=== PATIENT | male | born 1990 | race Caucasian/White ===

== ENCOUNTER 2020-03-14 09:42 | Emergency (ER) | payer SELFPAY ==
[2020-03-14] MEDS ORDERED: NA CHLORIDE 0.9% 1,000 ML ONE (10:21)
[2020-03-14 10:42] LABS: Albumin 4.1 g/dL (3.4-5.0); Bilirubin Direct 0.2 mg/dL (0-0.2); Bilirubin Total 0.5 mg/dL (0.2-1.0); Potassium 3.3 mmol/L (3.5-5.1); Protein, Total 7.5 g/dL (6.4-8.2)
[2020-03-14 10:43] LABS: Absolute Lymphocytes (CBC) 2.5 K/uL (0.7-4.9); Basophils % 0.4 % (0-1.3); Hematocrit 48.1 % (39.6-49.0); Lymphocytes % 23.1 % (15.3-44.8); MPV 8.5 fL (7.6-11.3); RBC Red Blood Cell Count 5.28 M/uL (4.33-5.43)
--- NOTE | 2020-03-14 11:02 | RAD REPORT ---
EXAM DESCRIPTION: CT - Stone Protocol - 03/14/2020 10:30 am CLINICAL HISTORY: Flank pain. Left falnk pain COMPARISON: No comparisons TECHNIQUE: Axial images were obtained without oral or IV contrast. Lack of contrast limits solid org an and vascular assessment. The [id number] spans the entirety of the system partially obscuring uppermost abdomen and lung bases. Coronal reformatted images were obtained and reviewed. All CT scans are performed using dose optimization technique as appropriate and may include automated exposure control or mA/KV adjustment according to patient size. FINDINGS: The lower lung gregory are clear. Imaged portions of the liver and spleen show no suspicious findings on non-contrast imaging. The panc reas and adrenal glands are normal. No pathologic lymphadenopathy in the abdomen or pelvis. 4 mm stone (850 HU) is present mid left ureter with mild left hydronephrosis. 6 mm stone is present i nferior calyx left kidney. No bowel obstruction, free air, free fluid or abscess. Normal appendix noted. No significant bony abnormality. IMPRESSION: 4 mm stone mid left ureter with mild left hydronephrosis. Additional 6 mm stone inferior calyx left kidney.
[2020-03-14 11:27] LABS: Urine Blood 2+ (NEG); Urine Glucose NEGATIVE (NEG); Urine Protein NEGATIVE (NEG)
--- NOTE | 2020-03-14 12:18 | EDPHYS ---
Physician Documentation [facility] Name: Miguel Martell Age: 30 yrs Sex: Male : 1990 Arrival Date: 03/14/2020 Time: 09:45 Bed 17 Private MD: ED Physician Alcides Langston HPI: 03/14 10:09 This 30 yrs old Male presents to ER via Ambulatory with complaints of kdr Possible Kidney Stone. 10:09 Left flank/CVA pain. Onset: The symptoms/episode began/occurred acutely, gradually, 3 kdr day(s) ago. Severity of symptoms: At their worst the symptoms were moderate severe in the emergency department the symptoms have improved moderately. The patient has not experienced similar symptoms in the past. The patient has not recently seen a physician. The patient's brother has had numerous kidney stones. Historical: - Allergies: 10:06 No Known Allergies; ph - Home Meds: 10:06 None [Active]; ph - PMHx: 10:06 None; ph - PSHx: 10:06 None; ph - Immunization history:: Adult Immunizations unknown. - Social history:: Smoking status: Patient denies any tobacco usage or history of. ROS: 10:09 Constitutional: Negative for fever, chills, and weight loss, Eyes: Negative for injury, kdr pain, redness, and discharge, ENT: Negative for injury, pain, and discharge, Neck: Negative for injury, pain, and swelling, Cardiovascular: Negative for chest pain, palpitations, and edema, Respiratory: Negative for shortness of breath, cough, wheezing, and pleuritic chest pain, Abdomen/GI: Negative for abdominal pain, nausea, vomiting, diarrhea, and constipation, : Negative for injury, bleeding, discharge, and swelling, MS/Extremity: Negative for injury and deformity, Skin: Negative for injury, rash, and discoloration, Neuro: Negative for headache, weakness, numbness, tingling, and seizure activity. Psych: Negative for depression, anxiety, suicide ideation, homicidal ideation, and hallucinations, Allergy/Immunology: Negative for hives, rash, and allergies, Endocrine: Negative for neck swelling, polydipsia, polyuria, polyphagia, and marked weight changes, Hematologic/Lymphatic: Negative for swollen nodes, abnormal bleeding, and unusual bruising. 10:09 Back: Positive for pain at rest, flank pain, on the left, of the left mid back. Exam: 10:09 Constitutional: This is a well developed, well nourished patient who is awake, alert, kdr and in no acute distress. Head/Face: Normocephalic, atraumatic. Eyes: Pupils equal round and reactive to light, extra-ocular motions intact. Lids and lashes normal. Conjunctiva and sclera are non-icteric and not injected. Cornea within normal limits. Periorbital areas with no swelling, redness, or edema. Neck: Trachea midline, no thyromegaly or masses palpated, and no cervical lymphadenopathy. Supple, full range of motion without nuchal rigidity, or vertebral point tenderness. No Meningismus. Chest/axilla: Normal chest wall appearance and motion. Nontender with no deformity. No lesions are appreciated. Cardiovascular: Regular rate and rhythm with a normal S1 and S2. No gallops, murmurs, or rubs. Normal PMI, no JVD. No pulse deficits. Respiratory: Lungs have equal breath sounds bilaterally, clear to auscultation and percussion. No rales, rhonchi or wheezes noted. No increased work of breathing, no retractions or nasal flaring. Abdomen/GI: Soft, non-tender, with normal bowel sounds. No distension or tympany. No guarding or rebound. No evidence of tenderness throughout. Skin: Warm, dry with normal turgor. Normal color with no rashes, no lesions, and no evidence of cellulitis. MS/ Extremity: Pulses equal, no cyanosis. Neurovascular intact. Full, normal range of motion. Neuro: Awake and alert, GCS 15, oriented to person, place, time, and situation. Cranial nerves II-XII grossly intact. Motor strength 5/5 in all extremities. Sensory grossly intact. Cerebellar exam normal. Normal gait. Psych: Awake, alert, with orientation to person, place and time. Behavior, mood, and affect are within normal limits. 10:09 Back: pain, that is mild, ROM is normal, normal spinal alignment noted, CVA tenderness, that is mild, is noted on the left. Vital Signs: 10:04 BP 118 / 84; Pulse 70; Resp 18; Temp 98.7; Pulse Ox 98% on R/A; Weight 72.57 kg; Height ph 5 ft. 8 in. (172.72 cm); Pain /; 11:31 BP 116 / 64; Pulse 75; Resp 15 S; Pulse Ox 100% on R/A; ca1 12:30 BP 122 / 77; Pulse 81; Resp 15 S; Pulse Ox 100% on R/A; ca1 10:04 Body Mass Index 24.33 (72.57 kg, 172.72 cm) ph MDM: 12:17 Patient medically screened. kdr 12:20 Data reviewed: vital signs, nurses notes, lab test result(s), radiologic studies. kdr Counseling: I had a detailed discussion with the patient and/or guardian regarding: the historical points, exam findings, and any diagnostic results supporting the discharge/admit diagnosis, lab results, radiology results, the need for outpatient follow up. ED course: The patient had little or no pain in the ED.. 03/14 10:08 Order name: Basic Metabolic Panel kdr 03/14 10:08 Order name: CBC with Diff; Complete Time: 12:00 kdr 03/14 10:08 Order name: Hepatic Function; Complete Time: 12:00 kdr 03/14 10:08 Order name: CT Stone Protocol; Complete Time: 12:00 kdr 03/14 10:08 Order name: Basic Metabolic Panel; Complete Time: 12:00 EDMS 03/14 10:36 Order name: Urine Dipstick--Ancillary (enter results); Complete Time: 12:00 em1 03/14 10:08 Order name: IV Saline Lock; Complete Time: 10:24 kdr 03/14 10:08 Order name: Labs collected and sent; Complete Time: 10:24 kdr Administered Medications: 10:20 Drug: NS 0.9% 1000 ml Route: IV; Rate: 1 bolus; Site: right antecubital; ca1 11:30 Follow up: Response: No adverse reaction; IV Status: Completed infusion ca1 Disposition: 03/14/20 12:17 Discharged to Home. Impression: Unspecified renal colic, Kidney Stones. - Condition is Stable. - Discharge Instructions: Renal Colic, [id number], Kidney Stones, [id number]. - Prescriptions for Tylenol- Codeine #3 300-30 mg Oral Tablet - take 2 tablets by ORAL route every 6 hours As needed; 15 tablet. Zofran 4 mg Oral Tablet - take 1 tablet by ORAL route every 4-6 hours As needed; 12 tablet. Flomax 0.4 mg Oral Capsule, Sust. Release 24 hr - take 1 capsule by ORAL route once daily 1/2 hour following the same meal each day; 10 capsule. Bactrim DS 800- 160 mg Oral Tablet - take 1 tablet by ORAL route every 12 hours for 3 days; 6 tablet. - Medication Reconciliation Form, Thank You Letter, Antibiotic Education, Prescription Opioid Use form. - Follow up: Private Physician; When: 2 - 3 days; Reason: If symptoms return, Further diagnostic work-up, Recheck today's complaints, Continuance of care, Re-evaluation by your physician. - Problem is new. - Symptoms have improved. Signatures: Dispatcher [employer] EDMS Alcides Langston MD MD kdr Hilda Guevara RN RN ph Romana Dawkins RN RN ca1 Corrections: (The following items were deleted from the chart) 12:35 12:17 03/14/2020 12:17 Discharged to Home. Impression: Unspecified renal colic; Kidney ca1 Stones. Condition is Stable. Forms are Medication Reconciliation Form, Thank You Letter, Antibiotic Education, Prescription Opioid Use. Follow up: Private Physician; When: 2 - 3 days; Reason: If symptoms return, Further diagnostic work-up, Recheck today's complaints, Continuance of care, Re-evaluation by your physician. Problem is new. Symptoms have improved. kdr
--- NOTE | 2020-03-14 12:18 | ER ---
Nurse's Notes [facility] Name: Miguel Martell Age: 30 yrs Sex: Male : 1990 Arrival Date: 03/14/2020 Time: 09:45 Bed 17 Private MD: Diagnosis: Unspecified renal colic;Kidney Stones Presentation: 03/14 10:04 Chief complaint: Patient states: Left lower back pain radiating to L flank and LLQ x 3 ph days, also reports 1 episode of N/V, denies fever or difficulty urinating. Coronavirus screen: Patient denies a cough. Patient denies shortness of breath or difficulty breathing. Patient denies measured and/or subjective temperature greater than 100.4F prior to today's visit. Patient denies travel on a cruise ship or to a country the [facility] currently lists as an affected area. Patient denies contact with known and/or suspected case of COVID-19. Ebola Screen: No symptoms or risks identified at this time. Initial Sepsis Screen: Does the patient meet any 2 criteria? No. Patient's initial sepsis screen is negative. Does the patient have a suspected source of infection? No. Patient's initial sepsis screen is negative. Risk Assessment: Do you want to hurt yourself or someone else? Patient reports no desire to harm self or others. Onset of symptoms was March 14, 2020. 10:04 Method Of Arrival: Ambulatory ph 10:04 Acuity: TANESHA 3 ph Historical: - Allergies: 10:06 No Known Allergies; ph - Home Meds: 10:06 None [Active]; ph - PMHx: 10:06 None; ph - PSHx: 10:06 None; ph - Immunization history:: Adult Immunizations unknown. - Social history:: Smoking status: Patient denies any tobacco usage or history of. Screenin:06 Abuse screen: Denies threats or abuse. Denies injuries from another. Nutritional ph screening: No deficits noted. Tuberculosis screening: No symptoms or risk factors identified. Fall Risk None identified. Assessment: 10:10 General: Appears in no apparent distress. comfortable, Behavior is calm, cooperative, ca1 appropriate for age. Pain: Complains of pain in back and left mid back Pain radiates to anterior aspect of left lateral abdomen Pain currently is 0 out of 10 on a pain scale. at worst was 8 out of 10 on a pain scale. Pain began 2-3 days ago. Is intermittent. Neuro: Level of Consciousness is awake, alert, obeys commands, Oriented to person, place, time, situation, Appropriate for age. Cardiovascular: Heart tones S1 S2 present Capillary refill < 3 seconds Patient's skin is warm and dry. Respiratory: Airway is patent Respiratory effort is even, unlabored, Respiratory pattern is regular, symmetrical, Breath sounds are clear bilaterally. GI: Abdomen is flat, non-distended, Bowel sounds present X 4 quads. Abd is soft and non tender X 4 quads. : No signs and/or symptoms were reported regarding the genitourinary system. EENT: No signs and/or symptoms were reported regarding the EENT system. Derm: Skin is intact, is healthy with good turgor, Skin is pink, warm \T\ dry. Musculoskeletal: Circulation, motion, and sensation intact. Capillary refill < 3 seconds. 11:30 Reassessment: Patient appears in no apparent distress at this time. Patient and/or ca1 family updated on plan of care and expected duration. Pain level reassessed. Patient is alert, oriented x 3, equal unlabored respirations, skin warm/dry/pink. 12:30 Reassessment: Patient appears in no apparent distress at this time. Patient and/or ca1 family updated on plan of care and expected duration. Pain level reassessed. Patient is alert, oriented x 3, equal unlabored respirations, skin warm/dry/pink. Vital Signs: 10:04 BP 118 / 84; Pulse 70; Resp 18; Temp 98.7; Pulse Ox 98% on R/A; Weight 72.57 kg; Height ph 5 ft. 8 in. (172.72 cm); Pain 1/10; 11:31 BP 116 / 64; Pulse 75; Resp 15 S; Pulse Ox 100% on R/A; ca1 12:30 BP 122 / 77; Pulse 81; Resp 15 S; Pulse Ox 100% on R/A; ca1 10:04 Body Mass Index 24.33 (72.57 kg, 172.72 cm) ph ED Course: 09:45 Patient arrived in ED. ag5 09:46 Alcides Langston MD is Attending Physician. kdr 10:06 Triage completed. ph 10:06 Arm band placed on Patient placed in an exam room, on a stretcher. ph 10:10 Patient has correct armband on for positive identification. Bed in low position. Call ca1 light in reach. Side rails up X 1. Pulse ox on. NIBP on. Pillow given. 10:11 Romana Dawkins, RN is Primary Nurse. ca1 10:18 No provider procedures requiring assistance completed. Initial lab(s) drawn, by id, ca1 sent to lab. Inserted saline lock: 18 gauge in right antecubital area, using aseptic technique. Blood collected. 10:30 CT Stone Protocol In Process Unspecified. EDMS 10:34 Urine collected: clean catch specimen, clear. ca1 12:34 IV discontinued, intact, bleeding controlled, No redness/swelling at site. Pressure ca1 dressing applied. Administered Medications: 10:20 Drug: NS 0.9% 1000 ml Route: IV; Rate: 1 bolus; Site: right antecubital; ca1 11:30 Follow up: Response: No adverse reaction; IV Status: Completed infusion ca1 Outcome: 12:17 Discharge ordered by . kdr 12:34 Discharged to home ambulatory. ca1 12:34 Condition: stable 12:34 Discharge instructions given to patient, Instructed on discharge instructions, follow up and referral plans. no drinking with medication, no driving heavy equipment, medication usage, Demonstrated understanding of instructions, follow-up care, medications, Prescriptions given X 4. 12:35 Patient left the ED. ca1 Signatures: Dispatcher [employer] EDAlcides Escoto MD MD [facility] Hilda Guevara RN RN Romana Dawkins RN RN ca1 Erin Benavidez ag5
[2020-03-14 12:42] VITALS: TEMP 98.7
[2020-03-14 12:44] VITALS: O2SAT 100
[2020-03-14 12:45] VITALS: BP 122/77
== END 2020-03-14 12:35 | disposition home or self-care (01) ==
LOC: ER 09:42
DX: N20.0 Calculus of kidney (principal); N23 Unspecified renal colic
CPT/HCPCS: 36415; 74176; 76377; 80048; 80076; 81003; 85025; 96360; 99284; J7030